=== PATIENT | female | born 1970 | race African-American/Black ===

== ENCOUNTER → 2019-11-13 | Outpatient (CLI) | payer OTHER | LOC: ULTRA 08:02 | DX: R16.0 Hepatomegaly, not elsewhere classified (principal); N39.0 Urinary tract infection, site not specified; D25.9 Leiomyoma of uterus, unspecified; M54.5 Low back pain ==

== ENCOUNTER → 2019-11-14 | Outpatient (CLI) | payer OTHER | LOC: CAT 09:11 | DX: R10.9 Unspecified abdominal pain (principal); R10.2 Pelvic and perineal pain ==

== ENCOUNTER → 2019-11-29 | Outpatient (CLI) | payer OTHER | LOC: ULTRA 11-28 14:34 | PROVIDERS: ATTEND Obstetrics & Gynecology | DX: N85.8 Other specified noninflammatory disorders of uterus (principal) ==

== ENCOUNTER 2020-03-26 08:43 | Emergency (ER) | payer OTHER ==
[~2020-03-26] VITALS: Ht 162.6 cm; Wt 79.4 kg
[2020-03-26 10:20] LABS: ABSOLUTE NEUTROPHILS 1.5 thou/uL (1.4-8.2); BASOPHILS 1.2 % (0.0-2.0); EOSINOPHILS 1.3 % (0.0-3.0); HEMATOCRIT 35.6 % (37.0-47.0); HEMOGLOBIN 11.6 gm/dL (12.0-15.0); LYMPHOCYTES 46.2 % (24.0-44.0); MCH 28.9 pg (26.0-34.0); MCHC 32.7 g/dL (28.0-37.0); MCV 88.2 fL (80.0-100.0); MONOCYTES 6.5 % (1.0-8.0); PLATELET COUNT 356 thou/uL (150-400); POLYS 44.8 % (36.0-66.0); RBC 4.03 mil/uL (4.20-5.00); RDW 14.9 % (10.5-14.5); WBC 3.3 thou/uL (4.0-11.0)
[2020-03-26] MEDS ORDERED: TRAMADOL 50 MG50 MG PO (10:22)
[2020-03-26] MEDS ORDERED: ATENOLOL 25 MG25 M1 PO (10:24)
[2020-03-26] MEDS ORDERED: FLEXERIL PO (10:24)
[2020-03-26 10:28] LABS: ANION GAP 10 mmol/L (7-16); BUN 13 mg/dL (7-18); CALCIUM 9.1 mg/dL (8.5-10.1); CHLORIDE 101 mmol/L (98-107); CO2 28 mmol/L (21-32); CREATININE 0.6 mg/dL (0.6-1.0); GLUCOSE 97 mg/dL (74-106); POTASSIUM 4.4 mmol/L (3.5-5.1); SODIUM 139 mmol/L (136-145)
[2020-03-26 10:38] LABS: ALBUMIN 4.1 g/dL (3.4-5.0); MAGNESIUM 1.9 mg/dL (1.8-2.4); SGOT 17 U/L (15-37); SGPT 21 U/L (30-65); TOTAL BILIRUBIN 0.3 mg/dL (0.2-1.0); TOTAL PROTEIN 8.5 g/dL (6.4-8.2); TROPONIN-I <0.06 ng/mL (<0.06)
[2020-03-26] MEDS ORDERED: ONDANSETRON ODT8 MG PO (10:49)
[2020-03-26] MEDS ORDERED: NORFLEX100 MG PO (10:49)
[2020-03-26] MEDS ORDERED: NAPROSYN500 MG PO (10:49)
[2020-03-26 11:31] VITALS: BP 156/93
--- NOTE | 2020-03-26 12:42 | EKG ---
[facility] [place] [address] ELECTROCARDIOGRAM REPORT Name: LYN FIORE Room #: DEP [facility]..#: [id number] Admission: 03/26/20 Attend Phys: Discharge: 03/26/20 Date of : 66 Report #: [id number] THIS REPORT FOR: cc: Jabier Don MD, Michael D. MD Santiago, Patrick MD [facility] ~ THIS REPORT FOR: //name// [facility] ED Test Date: 2020-03-26 Test Time: 10:17:46 Pat Name: LYN FIORE Department: Room: Gender: [employer] Hel[employer]: shalini kulkarni : 1970 Requested By: Karlos Ramirez Order Number: [id number] MD: Edgardo Lowe Measurements Intervals [place] Rate: 59 P: 38 PA: 156 QRS: 0 QRSD: 94 T: 4 QT: 428 QTc: 424 Interpretive Statements Sinus rhythm LVH by voltage Baseline wander in lead(s) V4 No previous ECG available for comparison Electronically Signed On 03-26-2020 12:42:31 CDT by Edgardo Lowe [email or web address] <ELECTRONICALLY SIGNED> By: Edgardo Lowe MD, FACC 03/26/20 1242 1017 [id number] Edgardo Lowe MD, [facility] /EPI
== END 2020-03-26 11:31 | disposition home or self-care (01) ==
LOC: ER 08:43
PROVIDERS: Emergency Medicine
DX: I10 Essential (primary) hypertension (principal); R51.9 Headache, unspecified; R11.2 Nausea with vomiting, unspecified; R42 Dizziness and giddiness; Z79.899 Other long term (current) drug therapy; Z91.048 Other nonmedicinal substance allergy status; Z88.1 Allergy status to other antibiotic agents; Z88.8 Allergy status to other drugs, medicaments and biological substances; Z88.5 Allergy status to narcotic agent; Z88.7 Allergy status to serum and vaccine

== ENCOUNTER 2020-10-26 06:46 | Emergency (ER) | payer OTHER ==
[~2020-10-26] VITALS: Ht 162.6 cm; Wt 81.7 kg
[~2020-10-26 06:46] MED LIST: ATENOLOL 25 MG25 M1 PO; FLEXERIL PO; NAPROSYN500 MG PO; NORFLEX100 MG PO; ONDANSETRON ODT8 MG PO; TRAMADOL 50 MG50 MG PO
[2020-10-26] MEDS ORDERED: LIPITOR40 MG PO (06:57)
[2020-10-26] MEDS ORDERED: ACID-PEP20 MG PO (09:14)
[2020-10-26] MEDS ORDERED: PREDNISONE 10 M10 MG PO (09:14)
[2020-10-26 09:25] VITALS: BP 150/90
== END 2020-10-26 09:26 | disposition home or self-care (01) ==
LOC: ER 06:46
DX: T78.49XA Other allergy, initial encounter (principal); I10 Essential (primary) hypertension; Z79.899 Other long term (current) drug therapy; Z91.048 Other nonmedicinal substance allergy status; Z88.1 Allergy status to other antibiotic agents; Z88.8 Allergy status to other drugs, medicaments and biological substances; Z88.5 Allergy status to narcotic agent; Z88.7 Allergy status to serum and vaccine; X58.XXXA Exposure to other specified factors, initial encounter